=== PATIENT | female | born 1950 | race Caucasian/White ===

== ENCOUNTER → 2018-09-17 | Outpatient (CLI) | payer BC ==
[~2018-09-17] MED LIST: DULO60; Sudogest30 MG; ZOLP10
== END | disposition home or self-care (01) ==
LOC: PLD 07:42 → LAB SHORT 07:42
DX: D48.5 Neoplasm of uncertain behavior of skin (principal)
CPT/HCPCS: 88304

== ENCOUNTER → 2018-10-22 | Outpatient (CLI) | payer BC | END | disposition home or self-care (01) | LOC: PLD 13:45 → LAB SHORT 13:45 | DX: L72.0 Epidermal cyst (principal) | CPT/HCPCS: 88304 ==

== ENCOUNTER → 2020-03-28 | Outpatient (CLI) | payer BC ==
[2020-03-30 17:07] LABS: Adenovirus F 40/41 Not Detected (NOT DETECT); Astrovirus Not Detected (NOT DETECT); Campylobacter Sp Not Detected (NOT DETECT); Cryptosporidium Not Detected (NOT DETECT); Cyclospora Cayetanensis Not Detected (NOT DETECT); E. Coli O157 Not Detected (NOT DETECT); Entamoeba Histolytica Not Detected (NOT DETECT); Enteroaggregative E. coli-EAEC Not Detected (NOT DETECT); Enteropathogenic E. coli-EPEC Not Detected (NOT DETECT); Enterotoxigenic E. coli-ETEC Not Detected (NOT DETECT); Giardia Lamblia Not Detected (NOT DETECT); Norovirus GI/GII Not Detected (NOT DETECT); Plesiomonas Shigelloides Not Detected (NOT DETECT); Rotavirus A Not Detected (NOT DETECT); Salmonella Sp Not Detected (NOT DETECT); Sapovirus Not Detected (NOT DETECT); Shiga Toxin-prod E. coli-STEC Not Detected (NOT DETECT); Shigella/Enteroin E. coli-EIEC Not Detected (NOT DETECT); Vibrio Cholerae Not Detected (NOT DETECT); Vibrio Sp Not Detected (NOT DETECT); Yersinia Enterocolitica Not Detected (NOT DETECT)
== END ==
LOC: LAB 09:30 → LAB SHORT 09:30 → LAB FUT 03-28 15:30
PROVIDERS: Nurse Practitioner Family
DX: R19.7 Diarrhea, unspecified (principal)
CPT/HCPCS: 0097U; 87177; 87209

== ENCOUNTER 2020-11-22 08:19 | Day surgery (SDC) | payer BC ==
[~2020-11-22] VITALS: Ht 167.6 cm; Wt 86.0 kg
[2020-11-22] MEDS ORDERED: MELO7.5 (09:21)
--- NOTE | 2020-11-22 09:25 | NUR ---
11/22/20 0925 Annita Nolan BLOOD DRAWN FOR PRP ANTICOAG ADDED AND DELIVERED TO OR AND SPUN BY ORS.YEISON.
== END 2020-11-22 13:15 | disposition home or self-care (01) ==
LOC: ORSCSDS 08:19
PROVIDERS: Orthopaedic Surgery
PROC: 0LQ24ZZ Repair Left Shoulder Tendon, Percutaneous Endoscopic Approach (ICD-10-PCS; principal; 2020-11-22 09:45)
PROC: 0RNK4ZZ Release Left Shoulder Joint, Percutaneous Endoscopic Approach (ICD-10-PCS; principal; 2020-11-22 09:45)
DX: M75.122 Complete rotator cuff tear or rupture of left shoulder, not specified as traumatic (principal); M75.22 Bicipital tendinitis, left shoulder; M75.42 Impingement syndrome of left shoulder; Z79.899 Other long term (current) drug therapy
CPT/HCPCS: A9270; C1713; J0171; J1100; J2001; J2250; J2370; J2405; J2704; J3010; J7120

== ENCOUNTER → 2022-06-26 | Outpatient (CLI) | payer BC ==
[~2022-06-26] MED LIST changes: +MELO7.5
== END ==
LOC: LAB 11:46 → LAB SHORT 11:46
DX: D22.72 Melanocytic nevi of left lower limb, including hip (principal)
CPT/HCPCS: 88305

== ENCOUNTER 2022-07-22 14:06 | Inpatient (IN) | payer BC ==
[~2022-07-22] VITALS: Ht 167.6 cm; Wt 85.8 kg
[~2022-07-22 14:06] MED LIST changes: -ZOLP10; +ZOLP10 PO
[2022-07-22 14:30] LABS: BASOPHILS ABSOLUTE AUTO 0.03 K/mm3 (0.00-0.23); BASOPHILS PERCENT AUTO 0 % (0-2); EOSINOPHILS ABSOLUTE AUTO 0.13 K/mm3 (0.00-0.68); EOSINOPHILS PERCENT AUTO 1 % (0-6); Hematocrit 44.4 % (33.0-51.0); IMMATURE GRAN ABSOLUTE AUTO 0.01 K/mm3 (0.00-0.10); IMMATURE GRAN PERCENT AUTO 0 % (0-1); LYMPHOCYTES ABSOLUTE AUTO 2.95 K/mm3 (0.84-5.20); LYMPHOCYTES PERCENT AUTO 32 % (21-46); MONOCYTES ABSOLUTE AUTO 0.89 K/mm3 (0.16-1.47); MONOCYTES PERCENT AUTO 10 % (4-13); Mean Corpuscular HGB 29.3 pg (26.0-34.0); Mean Corpuscular HGB Conc 33.8 g/dL (31.5-36.5); Mean Corpuscular Volume 87 fL (80-100); Mean Platelet Volume 10.5 fL (9.1-12.4); NEUTROPHILS ABSOLUTE AUTO 5.22 K/mm3 (1.96-9.15); NEUTROPHILS PERCENT AUTO 57 % (41-73); Platelet Count 277 K/mm3 (150-400); RDW Coefficient Variation 12.6 % (11.7-14.2); Red Blood Cell Count 5.12 M/mm3 (3.80-5.20); White Blood Cell Count 9.23 K/mm3 (4.00-11.30)
[2022-07-22 14:50] LABS: Albumin, Blood 4.3 g/dL (3.4-5.0); Albumin/Globulin Ratio 1.3 (0.8-1.8); Bilirubin, Total 0.4 mg/dL (0.1-1.0); Bun/Creatinine Ratio 30.2 (12.0-20.0); Calcium, Blood 10.1 mg/dL (8.5-10.1); Creatinine, Blood 0.8 mg/dL (0.40-1.00); Globulin, Blood 3.4 g/dL (2.2-4.0); Potassium, Blood 3.1 mmol/L (3.5-5.5); Total Protein, Blood 7.7 g/dL (6.4-8.2)
[2022-07-22 16:48] LABS: Source, Urine Clean Catch
[2022-07-22 16:52] LABS: Appearance, Urine Hazy (Clear); Bilirubin, Urine Neg (Neg); Blood, Urine 2+ (Neg); Glucose Qualitative, Urine 1+ (Neg); Ketones, Urine 3+ (Neg); Leukocyte Esterase, Urine Neg (Neg); Nitrite, Urine Neg (Neg); Protein, Urine 2+ (Neg); Specific Gravity, Urine 1.015 (1.003-1.022); Urobilinogen, Urine NORM (Normal)
[2022-07-22 16:57] LABS: Color, Urine Pale Yellow (P-Yellow)
[2022-07-22 17:00] LABS: Hyaline Casts 0-2 /lpf (0-2)
[2022-07-22 17:01] LABS: Amorphous Mod (0-Heavy); Bacteria Few /hpf; Red Blood Cells, Urine 0-2 /hpf (0-2); Squamous Epithelial Cells Few /hpf (Few); White Blood Cells, Urine 0-2 /hpf (0-5)
--- NOTE | 2022-07-22 18:47 | NUR ---
ED ADMIT RECEIVED REPORT FROM YEHUDA LEDESMA AT 1820. RECEIVED PT AT 1837 TO ROOM 306 VIA RNEY. PLACED IN BED MADE COMFORTABLE, ORIENTED TO ROOM AND UNIT ROUTINE. PT A&O X 4. VSS. K RIDERS ARE INFUSING SHE ARRIVED FROM ED. 18G IN L AC. PT IS INDEPENDENT FOR RESTROOM USE. PT DENIES PAIN AND NAUSEA AT THIS TIME. IS PLEASANT & COOPERATIVE WITH ALL CARE. REPORT GIVEN TO CHRIS LEDESMA.
[2022-07-22] MEDS ORDERED: Ketoconazole15 GM TOP (19:03)
[2022-07-22] MEDS ORDERED: ESTRADIOL42.5 GM VAG (19:05)
[2022-07-23 05:00] LABS: Hematocrit 41.8 % (33.0-51.0); Hemoglobin 13.9 g/dL (11.5-16.0); Mean Corpuscular HGB 29.3 pg (26.0-34.0); Mean Corpuscular HGB Conc 33.3 g/dL (31.5-36.5); Mean Corpuscular Volume 88 fL (80-100); Mean Platelet Volume 10.8 fL (9.1-12.4); Platelet Count 260 K/mm3 (150-400); RDW Coefficient Variation 12.7 % (11.7-14.2); RDW Standard Deviation 41.1 fL (35.1-46.3); Red Blood Cell Count 4.75 M/mm3 (3.80-5.20); White Blood Cell Count 9.65 K/mm3 (4.00-11.30)
[2022-07-23 05:13] LABS: Albumin, Blood 3.6 g/dL (3.4-5.0); Albumin/Globulin Ratio 1.1 (0.8-1.8); Bilirubin, Total 0.6 mg/dL (0.1-1.0); Bun/Creatinine Ratio 27.1 (12.0-20.0); Calcium, Blood 9.1 mg/dL (8.5-10.1); Creatinine, Blood 0.7 mg/dL (0.40-1.00); Globulin, Blood 3.2 g/dL (2.2-4.0); Magnesium, Blood 2.6 mg/dL (1.6-2.4); Potassium, Blood 4.4 mmol/L (3.5-5.5); Total Protein, Blood 6.8 g/dL (6.4-8.2)
--- NOTE | 2022-07-23 05:33 | NUR ---
SUMMARY: PATIENT ADMITTED LASTNIGHT FOR PANCREATITIS. 2 NURSE SKIN CHECK COMPLETED WITH BALTAZAR EDMONDSON. ABDOMINAL ULTRASOUND DONE AT BEDSIDE START OF SHIFT. IV POTASSIUM REPLACED X3 BAGS. BP ELEVATED, NOTIFIED RECIEVED ORDERS FOR PO HYDRALAZINE PRN. BP IMPROVED AFTER PRN. IV FLUIDS RUNNING. IV ZOFRAN AND REGLAN ADMINISTERED. PATIENT AWAKE MOST OF THE NIGHT. IV PAIN MEDS GIVEN PER EMAR. HEATING PAD PROVIDED. NO EPISODES OF EMESIS OVERNIGHT.
--- NOTE | 2022-07-23 19:38 | NUR ---
SHIFT SUMMARY PT A&OX4 AND PLEASANT. INDEPENDENT IN ROOM. PT C/O ABD PAIN AND NAUSEA THROUGHOUT DAY. MEDICATED PER EMAR. BLOOD PRESSURE WAS SLIGHTLY ELEVATED BUT DID NOT MEET HYDRALAZINE PARAMETERS. NO ACUTE CHANGES. DAUGHTER AT BEDSIDE. REPORT GIVEN TO AUTO HEADLIGHT MECHANIC NURSE.
--- NOTE | 2022-07-24 04:24 | NUR ---
SUMMARY: PATIENT AOX4, CALLS APPROPRIATELY. HYPERTENSIVE START OF SHIFT. PRN HYDRALIZINE GIVEN. PAIN AND NAUSEA MEDS GIVEN PER EMAR. PATIENT STILL NPO NOT TOLERATING ICE CHIPS. INDEPENDENT IN ROOM. IV HYDRATION RUNNING AT 100ML/HR.
[2022-07-24 05:51] LABS: Hematocrit 40.8 % (33.0-51.0); Hemoglobin 13.5 g/dL (11.5-16.0); Mean Corpuscular HGB 29.2 pg (26.0-34.0); Mean Corpuscular HGB Conc 33.1 g/dL (31.5-36.5); Mean Corpuscular Volume 88 fL (80-100); Mean Platelet Volume 10.7 fL (9.1-12.4); Platelet Count 203 K/mm3 (150-400); RDW Coefficient Variation 12.7 % (11.7-14.2); Red Blood Cell Count 4.63 M/mm3 (3.80-5.20); White Blood Cell Count 8.39 K/mm3 (4.00-11.30)
[2022-07-24 06:22] LABS: Bun/Creatinine Ratio 21.7 (12.0-20.0); Calcium, Blood 9.4 mg/dL (8.5-10.1); Creatinine, Blood 0.65 mg/dL (0.40-1.00); Potassium, Blood 3.9 mmol/L (3.5-5.5)
--- NOTE | 2022-07-24 16:50 | NUR ---
SHIFT SUMMARY: PATIENT A&OX4. PLEASANT AND COOPERATIVE WITH CARE. USES CALL LIGHT APPROPRIATELY AND ABLE TO ADVOCATE FOR HER NEEDS. PATIENT DENIED CP/CHEST DISCOMFORT. REPORTS OF NAUSEA BUT NO VOMITING. RECEIVED PRN NUSEA MEDS. PATIENT TOLERATING PO INTAKE. PATIENT REQUESTED LUKE WARM WATER CONSUME ABOUT 720 CC THIS SHIFT. PATIENT REPORTS OF PAIN/TENDERNESS ON UPPER QUADRANT OF ABDOMEN ABOUT 6/10. RECEIVED PAIN MEDS PER EMAR. PATIENT REPORTS OF HAVING ADEQUATE RELIEF. PATIENT REPORTS THAT OVERALL SEEMS SHE IS IMPROVING ABLE TO TOLERATE WARM DRINKS. IV TO SHOSHANA INFUSING LR AT 100 MLS/HR. VITAL SIGNS REVIEWED. PATIENT RECEIVED A SHOWER THIS PM AND TOLERATED WELL WITH NO SIGNS OF SOB AMBULATING TO BATHROOM AND BACK TO BED. BED IN LOWEST POSITION, LOCKED AND CALL LIGHT IN REACH.
--- NOTE | 2022-07-25 05:22 | NUR ---
SHIFT SUMMARY - NO ACUTE CHANGES THIS SHIFT. PT MEDICATED X1 WITH DILAUDED & REGLAN, WITH GOOD RELIEF. PT DENIED REQUEST FOR FURTHER PAIN/NAUSEA MEDICATIONS WHEN OFFERRED TONIGHT. PT TOLERATED WARM PO FLUIDS. PT INDEPENDENT TO BRP. PO FLUIDS AT BEDSIDE. CALL LIGHT WITHIN REACH. BED IN LOW POSITION. WILL CONTINUE TO MONITOR UNTIL AM SHIFT CHANGE.
--- NOTE | 2022-07-25 18:11 | NUR ---
SHIFT SUMMARY: OVERALL PATIENT IS CONTINUED TO BE IMPROVING THIS SHIFT. TOLERATED CL DIET FOR BREAKFAST. AT LUNCH, DIET WAS ADVANCED TO FL. PATIENT CONSUME ABOUT 50% OF HER MEAL AND DRINK ABOUT 720 CC OF FLUIDS. PATIENT REPORTS OF NO N/V BUT MILD PAIN/ TENDERNESS OF HER ABDOMEN. PATIENT RECEIVED PRN NORCO PER EMAR. PER PATIENT SHE HAD GREAT RELIEF FROM NORCO. AT DINNER, DIET WAS ADVANCED TO REGULAR. PATIENT EXPRESSESS WITH HER DIET IS IMPROVING AND TOLERATING FOOD, SHE IS HOPING THAT SHE WILL BE ABLE TO GO HOME TOMORROW. PATIENT HAD 2 LIQUID BROWN BM THIS SHIFT. PATIENT HAS BEEN AMBULATING IN HALLWAYS AND BACK IN ROOM INDEPENDENTLY. VITAL SIGNS REVIEWED. IV TO L AC SALINE LOCKED. PLEASANT AND COOPERATIVE WITH CARE AND USES CALL LIGHT APPROPRIATELY. CALL LIGHT WITHIN REACH.
--- NOTE | 2022-07-26 04:48 | NUR ---
SHIFT SUMMARY; NO ACUTE MEDICAL CHANGES OVERNIGHT. THE PT COMPLAINED OF ADBOMINAL PAIN ONCE LAST NIGHT FOR WHICH SHE WAS MEDICATED WITH A NORCO FOR. THE PT REMAINS INDPENEDNT IN THE ROOM AND USES THE CALL LIGHT APPROPRIATLEY TO COMMUNICATE HER NEEDS WITH STAFF. CURRENTLY THE PT IS SLEEPIG IN BED, THE BED IS IN THE LOWEST POSITION AND THE CALL LIGHT IS WITHIN REACH. ANTICIPATED DC TOMORROW.
[2022-07-26 05:18] LABS: Hematocrit 36.3 % (33.0-51.0); Hemoglobin 12.2 g/dL (11.5-16.0); Mean Corpuscular HGB 29.7 pg (26.0-34.0); Mean Corpuscular HGB Conc 33.6 g/dL (31.5-36.5); Mean Corpuscular Volume 88 fL (80-100); Mean Platelet Volume 10.8 fL (9.1-12.4); Platelet Count 172 K/mm3 (150-400); RDW Coefficient Variation 12.3 % (11.7-14.2); RDW Standard Deviation 39.8 fL (35.1-46.3); Red Blood Cell Count 4.11 M/mm3 (3.80-5.20); White Blood Cell Count 4.53 K/mm3 (4.00-11.30)
[2022-07-26 06:05] LABS: Bun/Creatinine Ratio 15.6 (12.0-20.0); Calcium, Blood 8.9 mg/dL (8.5-10.1); Creatinine, Blood 0.7 mg/dL (0.40-1.00); Potassium, Blood 3.8 mmol/L (3.5-5.5)
[2022-07-26] MEDS ORDERED: ZENPEP DR 10,01 EACH PO (11:03)
[2022-07-26] MEDS ORDERED: ONDA4ODT MM (11:32)
--- NOTE | 2022-07-26 14:12 | NUR ---
PT DISCHARGED 1200 WITH DC INSTRUCTIONS. SENT HOME WITH WRITTEN NORCO PRESCRIPTION. PT DECLINED W/C AND AMBULATED OUT WITH SONS. TOOK POSESSIONS INCLUDING D[place].
== END 2022-07-26 12:04 | disposition home or self-care (01) | DRG 917 ==
LOC: ER 14:06 → MEDS 16:27
PROVIDERS: Internal Medicine; Nurse Practitioner Acute Care; Student in an Organized Health Care Education/Training Program; ADMIT Internal Medicine
DX: T39.391A Poisoning by other nonsteroidal anti-inflammatory drugs [NSAID], accidental (unintentional), initial encounter (principal); K85.20 Alcohol induced acute pancreatitis without necrosis or infection; K86.3 Pseudocyst of pancreas; K86.1 Other chronic pancreatitis; T51.91XA Toxic effect of unspecified alcohol, accidental (unintentional), initial encounter; R03.0 Elevated blood-pressure reading, without diagnosis of hypertension; G47.00 Insomnia, unspecified; E87.6 Hypokalemia; K58.9 Irritable bowel syndrome, unspecified; K22.2 Esophageal obstruction; F10.10 Alcohol abuse, uncomplicated; Z88.0 Allergy status to penicillin; Z88.8 Allergy status to other drugs, medicaments and biological substances; Z79.899 Other long term (current) drug therapy; Z87.19 Personal history of other diseases of the digestive system; Z98.890 Other specified postprocedural states; Z87.891 Personal history of nicotine dependence
CPT/HCPCS: 36415; 74160; 76705; 80048; 80053; 81001; 83690; 83735; 85025; 85027; 96361; 96365; 96366; 96375; 96376; 99285-25; A9270; J1170; J1650; J1790; J2405; J2765; J3480; J7120; Q9967

== ENCOUNTER → 2022-08-29 | Outpatient (CLI) | payer BC ==
[~2022-08-29] MED LIST changes: +ESTRADIOL42.5 GM VAG; +Ketoconazole15 GM TOP; +ONDA4ODT MM; +ZENPEP DR 10,01 EACH PO
== END ==
LOC: LAB 14:26 → LAB SHORT 14:26
DX: L08.0 Pyoderma (principal)
CPT/HCPCS: 87070; 87205

== ENCOUNTER 2023-04-04 09:11 | Day surgery (SDC) | payer BC ==
[~2023-04-04] VITALS: Ht 167.6 cm; Wt 82.5 kg
--- NOTE | 2023-04-04 09:33 | NUR ---
04/04/23 0933 Dorene Brito 1 DROP OF TETRACAINE ADMINISTERED TO THE L EYE AT 0926, PLEDGET PLACED IN L EYE AT 0928
[2023-04-04 10:46] VITALS: BP 154/60
== END 2023-04-04 10:50 | disposition home or self-care (01) ==
LOC: ORSCSDS 09:11
PROVIDERS: Ophthalmology
PROC: 08RK3JZ Replacement of Left Lens with Synthetic Substitute, Percutaneous Approach (ICD-10-PCS; principal; 2023-04-04 10:30)
DX: H25.12 Age-related nuclear cataract, left eye (principal); Z96.1 Presence of intraocular lens; F32.A Depression, unspecified; F41.9 Anxiety disorder, unspecified; Z87.891 Personal history of nicotine dependence; Z79.899 Other long term (current) drug therapy
CPT/HCPCS: J2250; J3010; J3301; J7040; V2632